=== PATIENT | female | born 1995 | race Caucasian/White ===

== ENCOUNTER 2021-02-04 18:06 | Emergency (ER) | payer OTHER ==
[2021-02-04 19:02] LABS: HEMOGLOBIN 11.7 gm/dl (12.3-15.3); RED BLOOD COUNT 3.74 M/UL (4.00-5.10)
[2021-02-04 19:38] LABS: BUN/CREATININE RATIO 11 (0-10)
== END 2021-02-04 21:10 | disposition home or self-care (01) ==
LOC: ER1 18:06
PROVIDERS: Physician Assistant
DX: R07.89 Other chest pain (principal); Z87.2 Personal history of diseases of the skin and subcutaneous tissue
CPT/HCPCS: 80053; 81001; 82550; 82553; 83874; 84484; 84703; 85025; 85610; 85730; 87086; 93005; 99285; Q9967